=== PATIENT | female | born 1950 | race African-American/Black ===

== ENCOUNTER → 2016-12-07 | Outpatient (CLI) | payer MEDICARE, OTHER ==
[~2016-12-07] MED LIST: THYROXIN; VALS160T51 OR
== END | disposition home or self-care (01) ==
LOC: Rad HDHVI 14:56
PROVIDERS: ATTEND Internal Medicine Cardiovascular Disease
DX: I44.2 Atrioventricular block, complete (principal); R06.02 Shortness of breath
CPT/HCPCS: 93306

== ENCOUNTER → 2016-12-13 | Outpatient (CLI) | payer MEDICARE, OTHER ==
[~2016-12-13] VITALS: Ht 174.6 cm; Wt 117.9 kg
== END | disposition home or self-care (01) ==
LOC: Rad HDHVI 13:33
PROVIDERS: ATTEND Internal Medicine Cardiovascular Disease
DX: I44.7 Left bundle-branch block, unspecified (principal); R06.02 Shortness of breath; R05 Cough
CPT/HCPCS: 78452; 93017; 96374; A9500

== ENCOUNTER → 2016-12-15 | Outpatient (CLI) | payer MEDICARE, OTHER ==
[~2016-12-15] MED LIST changes: +IOHEXOL 350 MG/ML 100ML IJ ONE
[2016-12-15 10:15] VITALS: BP 136/79
[2016-12-15 11:15] VITALS: BP 132/72
== END | disposition home or self-care (01) ==
LOC: Rad HDHVI 10:08
PROVIDERS: ATTEND Internal Medicine Cardiovascular Disease
DX: G45.9 Transient cerebral ischemic attack, unspecified (principal); R05 Cough; R51 Headache
CPT/HCPCS: 70496; 70498; 71020; 82565; 96374; G0463; Q9967

== ENCOUNTER → 2016-12-28 | Outpatient (CLI) | payer MEDICARE, OTHER ==
[~2016-12-28] MED LIST changes: -IOHEXOL 350 MG/ML 100ML IJ ONE
[2016-12-28 16:31] LABS: Basophils # (auto) 0 uL; Basophils % (auto) 0.3 % (0.0-2.0); Eosinophils # (auto) 0.1 uL; Eosinophils % (auto) 1.8 % (0.0-7.0); Hematocrit 36.3 % (36.0-46.0); Hemoglobin 11.8 g/dL (12.2-16.2); Lymphocytes # (auto) 2.3 uL; Mean Corpuscular Hemoglobin 29.6 pg (28.0-32.0); Mean Corpuscular Hgb Conc. 32.6 g/dL (32.0-36.0); Mean Corpuscular Volume 90.9 fL (80.0-100.0); Mean Platelet Volume 7.7 fL (6.9-10.8); Monocytes # (auto) 0.2 uL; Monocytes % (auto) 3.7 % (0.0-12.0); Neutrophils # (auto) 3.6 uL; Neutrophils % (auto) 58.2 % (37.0-80.0); Platelet Count (auto) 282 10^3/uL (140-450); Red Cell Distribution Width 14.7 % (11.8-14.3); White Blood Cell 6.3 10^3/uL (4.4-10.8)
[2016-12-28 16:36] LABS: Albumin 3.5 g/dL (3.4-5.0); Calcium 8.7 mg/dL (8.5-10.1); Magnesium 2.1 mg/dL (1.6-2.6); Potassium 3.9 mmol/L (3.5-5.1)
[2016-12-28 16:43] LABS: Bilirubin, Total 0.4 mg/dL (0.2-1.0); Total Protein 7.7 g/dL (6.4-8.2)
== END | disposition home or self-care (01) ==
LOC: CHF HDHVI 12:32
PROVIDERS: ATTEND Internal Medicine Cardiovascular Disease
DX: I10 Essential (primary) hypertension (principal); E11.9 Type 2 diabetes mellitus without complications; E83.42 Hypomagnesemia; D64.9 Anemia, unspecified; E03.9 Hypothyroidism, unspecified
CPT/HCPCS: 36415; 80053; 83036; 83735; 84443; 85025; G0463

== ENCOUNTER → 2017-02-15 | Outpatient (CLI) | payer MEDICARE, OTHER ==
[~2017-02-15] MED LIST changes: +READI-CAT 2 (BARIUM SULF)(VANILLA SMOOTHIE) 450ML ONE
[2017-02-15 16:19] LABS: Urine Bilirubin Negative (Negative); Urine Blood Negative /uL (Negative); Urine Color Yellow (Yellow); Urine Glucose Normal (Normal); Urine Ketone Negative (Negative); Urine Nitrite Negative (Negative); Urine Urobilinogen Normal (Negative); Urine pH 5.5 (5.0-8.0)
== END | disposition home or self-care (01) ==
LOC: Rad HDHVI 10:54
PROVIDERS: ATTEND Internal Medicine Cardiovascular Disease
DX: K42.9 Umbilical hernia without obstruction or gangrene (principal); M48.02 Spinal stenosis, cervical region; M51.26 Other intervertebral disc displacement, lumbar region; M48.061 Spinal stenosis, lumbar region without neurogenic claudication; N39.0 Urinary tract infection, site not specified
CPT/HCPCS: 72125; 72131; 74176; 81003; 87086

== ENCOUNTER → 2018-01-06 | Outpatient (CLI) | payer MEDICARE, BC ==
[~2018-01-06] MED LIST changes: -READI-CAT 2 (BARIUM SULF)(VANILLA SMOOTHIE) 450ML ONE
[2018-01-06 12:20] LABS: Basophils # (auto) 0 uL; Basophils % (auto) 0.6 % (0.0-2.0); Eosinophils # (auto) 0.2 uL; Eosinophils % (auto) 2.8 % (0.0-7.0); Hemoglobin 11.5 g/dL (12.2-16.2); Lymphocytes # (auto) 2.4 uL; Lymphocytes % (auto) 40.5 % (10.0-50.0); Mean Corpuscular Hemoglobin 30.4 pg (28.0-32.0); Mean Corpuscular Hgb Conc. 32.9 g/dL (32.0-36.0); Mean Corpuscular Volume 92.3 fL (80.0-100.0); Monocytes # (auto) 0.3 uL; Monocytes % (auto) 4.8 % (0.0-12.0); Neutrophils # (auto) 3.1 uL; Neutrophils % (auto) 51.3 % (37.0-80.0); Nucleated Red Blood Cells % 0.3 %; Platelet Count (auto) 268 10^3/uL (140-450); Red Cell Distribution Width 14.6 % (11.8-14.3)
[2018-01-06 12:36] LABS: Free T4 (Free Thyroxine) 1.07 ng/dL (0.89-1.76)
[2018-01-06 12:43] LABS: Albumin 3.4 g/dL (3.4-5.0); Calcium 8.7 mg/dL (8.5-10.1); Potassium 3.8 mmol/L (3.5-5.1)
[2018-01-06 12:49] LABS: BUN/Creatinine Ratio 23.4; Bilirubin, Total 0.3 mg/dL (0.2-1.0); Total Protein 7.7 g/dL (6.4-8.2)
== END | disposition home or self-care (01) ==
LOC: Rad HDHVI 08:34
PROVIDERS: ATTEND Internal Medicine Cardiovascular Disease
DX: Z00.01 Encounter for general adult medical examination with abnormal findings (principal); I67.2 Cerebral atherosclerosis; E03.9 Hypothyroidism, unspecified; E55.9 Vitamin D deficiency, unspecified; E11.9 Type 2 diabetes mellitus without complications; D51.9 Vitamin B12 deficiency anemia, unspecified; R51 Headache
CPT/HCPCS: 36415; 70450; 80053; 80061; 82306; 82607; 83036; 84439; 84443; 85025

== ENCOUNTER → 2018-11-02 | Outpatient (CLI) | payer MEDICARE, BC | END | disposition home or self-care (01) | LOC: Rad HDHVI 09:01 | PROVIDERS: ATTEND Internal Medicine Cardiovascular Disease | DX: I34.0 Nonrheumatic mitral (valve) insufficiency (principal); I11.0 Hypertensive heart disease with heart failure; I50.33 Acute on chronic diastolic (congestive) heart failure | CPT/HCPCS: 93306 ==

== ENCOUNTER → 2018-11-15 | Outpatient (CLI) | payer MEDICARE, BC | END | disposition home or self-care (01) | LOC: Rad HDHVI 09:37 | PROVIDERS: ATTEND Internal Medicine Cardiovascular Disease | DX: R07.89 Other chest pain (principal); I11.0 Hypertensive heart disease with heart failure; I50.33 Acute on chronic diastolic (congestive) heart failure; R94.31 Abnormal electrocardiogram [ECG] [EKG]; R06.01 Orthopnea | CPT/HCPCS: 78452; 93017; 96374; A9500 ==

== ENCOUNTER → 2019-07-19 | Outpatient (CLI) | payer MEDICARE, BC ==
[2019-07-19 11:59] LABS: Urine Blood Negative /uL (Negative)
[2019-07-19 12:00] LABS: Basophils # (auto) 0 10 ^3/uL (0-0.2); Basophils % (auto) 0.3 % (0.0-2.0); Eosinophils # (auto) 0.2 10 ^3/uL (0-0.8); Eosinophils % (auto) 4.4 % (0.0-7.0); Hematocrit 36.1 % (36.0-46.0); Hemoglobin 11.7 g/dL (12.2-16.2); Lymphocytes # (auto) 2.6 10 ^3/uL (0.4-5.4); Lymphocytes % (auto) 45.5 % (10.0-50.0); Mean Corpuscular Hemoglobin 29.5 pg (28.0-32.0); Mean Corpuscular Hgb Conc. 32.3 g/dL (32.0-36.0); Mean Corpuscular Volume 91.3 fL (80.0-100.0); Monocytes # (auto) 0.2 10 ^3/uL (0-1.3); Monocytes % (auto) 3.4 % (0.0-12.0); Neutrophils # (auto) 2.6 10 ^3/uL (1.6-8.6); Neutrophils % (auto) 46.4 % (37.0-80.0); Platelet Count (auto) 272 10^3/uL (140-450); Red Blood Cells 3.95 10^6/uL (4.0-5.20); Red Cell Distribution Width 14.7 % (11.8-14.3); White Blood Cell 5.6 10^3/uL (4.4-10.8)
[2019-07-19 12:13] LABS: Potassium 3.5 mmol/L (3.5-5.1)
[2019-07-19 12:21] LABS: Albumin 3.3 g/dL (3.4-5.0); BUN/Creatinine Ratio 18.6; Bilirubin, Total 0.4 mg/dL (0.2-1.0); Calcium 8.7 mg/dL (8.5-10.1); Total Protein 7.8 g/dL (6.4-8.2)
[2019-07-19 12:24] LABS: Free T4 (Free Thyroxine) 1.34 ng/dL (0.89-1.76)
== END | disposition home or self-care (01) ==
LOC: LAB 10:35
PROVIDERS: ATTEND Internal Medicine Cardiovascular Disease
DX: E03.9 Hypothyroidism, unspecified (principal); K90.9 Intestinal malabsorption, unspecified; N39.0 Urinary tract infection, site not specified; D51.9 Vitamin B12 deficiency anemia, unspecified; Z79.899 Other long term (current) drug therapy
CPT/HCPCS: 36415; 80053; 80061; 81003; 82306; 82607; 83036; 84439; 84443; 85025

== ENCOUNTER → 2019-10-22 | Outpatient (CLI) | payer MEDICARE, BC | END | disposition home or self-care (01) | LOC: Rad HDHVI 12:34 | PROVIDERS: ATTEND Internal Medicine Cardiovascular Disease | DX: M51.26 Other intervertebral disc displacement, lumbar region (principal); M48.061 Spinal stenosis, lumbar region without neurogenic claudication; M25.552 Pain in left hip; M25.551 Pain in right hip; K42.9 Umbilical hernia without obstruction or gangrene | CPT/HCPCS: 72131; 72192 ==

== ENCOUNTER → 2019-11-21 | Outpatient (CLI) | payer MEDICARE, BC | END | disposition home or self-care (01) | LOC: LAB 13:26 | PROVIDERS: ATTEND Internal Medicine Cardiovascular Disease | DX: E03.9 Hypothyroidism, unspecified (principal); I10 Essential (primary) hypertension | CPT/HCPCS: 36415; 84439; 84443 ==

== ENCOUNTER 2020-02-03 09:27 | Emergency (ER) | payer MEDICARE, BC ==
[~2020-02-03] VITALS: Ht 172.7 cm; Wt 112.5 kg
[2020-02-03] MEDS ORDERED: HYDROmorphone HCL 2 MG/ML VL ONE (10:38)
[2020-02-03] MEDS ORDERED: PROMETHAZINE HCL 25 MG/ML 1ML IV ONE (10:45)
[2020-02-03] MEDS ORDERED: HYDROmorphone HCL 2 MG/ML VL IV ONE (10:45)
[2020-02-03 11:07] LABS: Basophils # (auto) 0 10 ^3/uL (0-0.2); Basophils % (auto) 0.4 % (0.0-2.0); Eosinophils # (auto) 0.1 10 ^3/uL (0-0.8); Eosinophils % (auto) 0.7 % (0.0-7.0); Hematocrit 34.8 % (36.0-46.0); Hemoglobin 11.4 g/dL (12.2-16.2); Lymphocytes # (auto) 2.8 10 ^3/uL (0.4-5.4); Lymphocytes % (auto) 33.8 % (10.0-50.0); Mean Corpuscular Hemoglobin 30.4 pg (28.0-32.0); Mean Corpuscular Hgb Conc. 32.7 g/dL (32.0-36.0); Mean Corpuscular Volume 92.9 fL (80.0-100.0); Monocytes # (auto) 0.3 10 ^3/uL (0-1.3); Monocytes % (auto) 3.1 % (0.0-12.0); Neutrophils # (auto) 5.2 10 ^3/uL (1.6-8.6); Platelet Count (auto) 280 10^3/uL (140-450); Red Blood Cells 3.75 10^6/uL (4.0-5.20); Red Cell Distribution Width 14.5 % (11.8-14.3); White Blood Cell 8.4 10^3/uL (4.4-10.8)
[2020-02-03 11:17] LABS: Alanine Aminotransferase 19 U/L (13-56); Albumin 3.5 g/dL (3.4-5.0); Alkaline Phosphatase 74 U/L (45-117); Anion Gap 8 (5-15); Aspartate Aminotransferase 13 U/L (15-37); Bilirubin, Total 0.4 mg/dL (0.2-1.0); Blood Urea Nitrogen 17 mg/dL (7-18); Calcium 8.9 mg/dL (8.5-10.1); Carbon Dioxide 25 mmol/L (21-32); Chloride 107 mmol/L (98-107); GFR African American 90 mL/min; GFR Non-African American 74 mL/min; Glucose 124 mg/dL (74-106); Potassium 3.4 mmol/L (3.5-5.1); Sodium 140 mmol/L (136-145); Total Protein 7.5 g/dL (6.4-8.2)
[2020-02-03] MEDS ORDERED: POTASSIUM EFFERVESENT TAB 25 MEQ PO ONE (13:15)
[2020-02-03 13:55] VITALS: BP 90/66
== END 2020-02-03 15:13 | disposition home or self-care (01) ==
LOC: EDBD 09:27 → ER 09:27
DX: S43.004A Unspecified dislocation of right shoulder joint, initial encounter (principal); S42.141A Displaced fracture of glenoid cavity of scapula, right shoulder, initial encounter for closed fracture; S42.91XA Fracture of right shoulder girdle, part unspecified, initial encounter for closed fracture; E87.6 Hypokalemia; W01.0XXA Fall on same level from slipping, tripping and stumbling without subsequent striking against object, initial encounter; Y93.89 Activity, other specified; Y92.89 Other specified places as the place of occurrence of the external cause; Y99.8 Other external cause status
CPT/HCPCS: 23650; 36415; 71045; 71101; 72040; 73020; 73030; 73502; 80053; 84484; 85025; 93005; 96374; 96375; 99285; J1170; J2550

== ENCOUNTER → 2020-02-18 | Outpatient (CLI) | payer MEDICARE, BC ==
[~2020-02-18] VITALS: Ht 1 cm; Wt 0.5 kg
[~2020-02-18] MED LIST changes: +ACETAMINOPHEN 500 MG TAB PO ONE; +DexAMETHasone SOD PHOS 10MG/1ML VIAL INJ IV ONE; +DexAMETHasone SOD PHOS 10MG/1ML VIAL INJ ONE; +KETOROLAC TROMETH 30 MG/ML 1ML VIAL IV ONE; +KETOROLAC TROMETH 60MG/2ML VIAL ONE
[2020-02-18 12:30] VITALS: BP 116/77
[2020-02-18 13:59] LABS: Basophils # (auto) 0 10 ^3/uL (0-0.2); Basophils % (auto) 0.1 % (0.0-2.0); Eosinophils # (auto) 0 10 ^3/uL (0-0.8); Hematocrit 32.9 % (36.0-46.0); Hemoglobin 10.8 g/dL (12.2-16.2); Lymphocytes % (auto) 14.3 % (10.0-50.0); Mean Corpuscular Hemoglobin 29.9 pg (28.0-32.0); Mean Corpuscular Hgb Conc. 32.9 g/dL (32.0-36.0); Mean Corpuscular Volume 90.7 fL (80.0-100.0); Monocytes # (auto) 0.2 10 ^3/uL (0-1.3); Monocytes % (auto) 3.2 % (0.0-12.0); Neutrophils # (auto) 5.7 10 ^3/uL (1.6-8.6); Neutrophils % (auto) 82.4 % (37.0-80.0); Nucleated Red Blood Cells % 0.1 %; Platelet Count (auto) 316 10^3/uL (140-450); Red Blood Cells 3.63 10^6/uL (4.0-5.20); Red Cell Distribution Width 14.1 % (11.8-14.3); White Blood Cell 6.9 10^3/uL (4.4-10.8)
[2020-02-18 14:10] LABS: Albumin 3.1 g/dL (3.4-5.0); Calcium 8.5 mg/dL (8.5-10.1); Magnesium 2.2 mg/dL (1.6-2.6); Potassium 3.5 mmol/L (3.5-5.1)
[2020-02-18 14:15] LABS: BUN/Creatinine Ratio 14.5; Bilirubin, Total 0.8 mg/dL (0.2-1.0); Total Protein 7.6 g/dL (6.4-8.2)
[2020-02-18 15:30] VITALS: BP 111/73
== END | disposition home or self-care (01) ==
LOC: CHF HDHVI 12:49
PROVIDERS: ATTEND Internal Medicine Cardiovascular Disease
DX: I11.0 Hypertensive heart disease with heart failure (principal); I50.23 Acute on chronic systolic (congestive) heart failure; M25.511 Pain in right shoulder; M54.6 Pain in thoracic spine; R05 Cough; M25.411 Effusion, right shoulder
CPT/HCPCS: 36415; 71046; 73030; 80053; 83735; 85025; 96372; 96374; 96375; G0463; J1100; J1885

== ENCOUNTER 2020-02-20 02:31 | Emergency (ER) | payer MEDICARE, BC ==
[~2020-02-20] VITALS: Ht 172.7 cm; Wt 108.9 kg
[~2020-02-20 02:31] MED LIST changes: -ACETAMINOPHEN 500 MG TAB PO ONE; -DexAMETHasone SOD PHOS 10MG/1ML VIAL INJ IV ONE; -DexAMETHasone SOD PHOS 10MG/1ML VIAL INJ ONE; -KETOROLAC TROMETH 30 MG/ML 1ML VIAL IV ONE; -KETOROLAC TROMETH 60MG/2ML VIAL ONE
[2020-02-20 02:59] VITALS: BP 151/67
[2020-02-20] MEDS ORDERED: HYDROcodone-ACET 10/325MG TAB PO ONE (04:15)
== END 2020-02-20 06:25 | disposition home or self-care (01) ==
LOC: EDUNIT# 02:31 → EDBD 02:31 → ER 02:38
DX: S43.401A Unspecified sprain of right shoulder joint, initial encounter (principal); I10 Essential (primary) hypertension; Z79.899 Other long term (current) drug therapy; W19.XXXA Unspecified fall, initial encounter; Y93.89 Activity, other specified; Y92.89 Other specified places as the place of occurrence of the external cause; Y99.8 Other external cause status

== ENCOUNTER → 2020-04-18 | Outpatient (CLI) | payer MEDICARE, BC ==
[~2020-04-18] MED LIST changes: +VALS160T4 OR; -VALS160T51 OR
== END | disposition home or self-care (01) ==
LOC: Rad HDHVI 11:05
PROVIDERS: ATTEND Internal Medicine Cardiovascular Disease
DX: M19.011 Primary osteoarthritis, right shoulder (principal); R91.8 Other nonspecific abnormal finding of lung field; I70.0 Atherosclerosis of aorta; R06.02 Shortness of breath; E03.9 Hypothyroidism, unspecified; M25.511 Pain in right shoulder
CPT/HCPCS: 36415; 71046; 73030; 84443

== ENCOUNTER 2020-06-11 01:27 | Emergency (ER) | payer MEDICARE, BC ==
[~2020-06-11] VITALS: Ht 180.3 cm; Wt 108.9 kg
[2020-06-11] MEDS ORDERED: SODIUM CHLORIDE 0.9% 1,000 ML IV ONE (02:30)
[2020-06-11 03:08] LABS: Basophils # (auto) 0.1 10 ^3/uL (0-0.2); Basophils % (auto) 1.3 % (0.0-2.0); Eosinophils # (auto) 0.1 10 ^3/uL (0-0.8); Hematocrit 37.3 % (36.0-46.0); Hemoglobin 11.9 g/dL (12.2-16.2); Lymphocytes # (auto) 2.6 10 ^3/uL (0.4-5.4); Mean Corpuscular Hemoglobin 31.2 pg (28.0-32.0); Mean Corpuscular Hgb Conc. 31.9 g/dL (32.0-36.0); Mean Corpuscular Volume 97.9 fL (80.0-100.0); Monocytes # (auto) 0.4 10 ^3/uL (0-1.3); Monocytes % (auto) 3.3 % (0.0-12.0); Neutrophils # (auto) 7.7 10 ^3/uL (1.6-8.6); Neutrophils % (auto) 70.4 % (37.0-80.0); Nucleated Red Blood Cells % 0.1 %; Platelet Count (auto) 249 10^3/uL (140-450); Red Blood Cells 3.81 10^6/uL (4.0-5.20); Red Cell Distribution Width 15.8 % (11.8-14.3)
[2020-06-11 03:21] LABS: INR 1.02 (0.9-1.15)
[2020-06-11 03:30] LABS: Albumin 3.8 g/dL (3.4-5.0); Anion Gap 8 (5-15); Blood Urea Nitrogen 15 mg/dL (7-18); Carbon Dioxide 23 mmol/L (21-32); Chloride 108 mmol/L (98-107); Glucose 128 mg/dL (74-106); Lipase 109 U/L (73-393); Potassium 3.9 mmol/L (3.5-5.1); Sodium 139 mmol/L (136-145)
[2020-06-11 03:36] LABS: Alanine Aminotransferase 20 U/L (13-56); Alkaline Phosphatase 75 U/L (45-117); Aspartate Aminotransferase 17 U/L (15-37); BUN/Creatinine Ratio 17.4; Bilirubin, Total 0.4 mg/dL (0.2-1.0); GFR African American 84 mL/min; GFR Non-African American 69 mL/min; Phosphorus 3.6 mg/dL (2.5-4.90); Total Protein 7.6 g/dL (6.4-8.2)
[2020-06-11] MEDS ORDERED: DICYCLOMINE HCL (10MG/ML) 2 ML AMPULE IM ONE (04:30)
[2020-06-11 05:01] VITALS: BP 119/65
== END 2020-06-11 05:23 | disposition home or self-care (01) ==
LOC: EDBD 01:27 → ER 01:32
DX: R55 Syncope and collapse (principal); R19.7 Diarrhea, unspecified; I10 Essential (primary) hypertension; Z88.2 Allergy status to sulfonamides
CPT/HCPCS: 36415; 71045; 80053; 82962; 83605; 83690; 83735; 83880; 84100; 84484; 85025; 85610; 93005; 96360; 96361; 96372; 99285; J0500

== ENCOUNTER → 2020-10-01 | Outpatient (CLI) | payer MEDICARE, BC | END | disposition home or self-care (01) | LOC: Rad HDHVI 09:46 | PROVIDERS: ATTEND Internal Medicine Cardiovascular Disease | DX: I10 Essential (primary) hypertension (principal); E78.5 Hyperlipidemia, unspecified | CPT/HCPCS: 93925 ==

== ENCOUNTER → 2020-10-03 | Outpatient (CLI) | payer MEDICARE, BC | END | disposition home or self-care (01) | LOC: Rad HDHVI 15:39 | PROVIDERS: ATTEND Internal Medicine Cardiovascular Disease | DX: R00.2 Palpitations (principal); R06.02 Shortness of breath | CPT/HCPCS: 93306 ==

== ENCOUNTER → 2020-10-15 | Outpatient (CLI) | payer MEDICARE, BC | END | disposition home or self-care (01) | LOC: Rad HDHVI 12:54 | PROVIDERS: ATTEND Internal Medicine Cardiovascular Disease | DX: R51.9 Headache, unspecified (principal) | CPT/HCPCS: 70450 ==

== ENCOUNTER → 2020-12-15 | Outpatient (CLI) | payer MEDICARE, BC ==
[2020-12-15 15:36] LABS: Basophils # (auto) 0 10 ^3/uL (0-0.2); Basophils % (auto) 0.4 % (0.0-2.0); Eosinophils # (auto) 0 10 ^3/uL (0-0.8); Eosinophils % (auto) 1.2 % (0.0-7.0); Hematocrit 37.1 % (36.0-46.0); Hemoglobin 12.1 g/dL (12.2-16.2); Lymphocytes # (auto) 1.7 10 ^3/uL (0.4-5.4); Lymphocytes % (auto) 40.6 % (10.0-50.0); Mean Corpuscular Hemoglobin 28.7 pg (28.0-32.0); Mean Corpuscular Hgb Conc. 32.5 g/dL (32.0-36.0); Mean Corpuscular Volume 88.2 fL (80.0-100.0); Monocytes # (auto) 0.5 10 ^3/uL (0-1.3); Monocytes % (auto) 13.2 % (0.0-12.0); Neutrophils # (auto) 1.8 10 ^3/uL (1.6-8.6); Neutrophils % (auto) 44.6 % (37.0-80.0); Red Blood Cells 4.21 10^6/uL (4.0-5.20); Red Cell Distribution Width 14.8 % (11.8-14.3); White Blood Cell 4.1 10^3/uL (4.4-10.8)
[2020-12-15 16:21] LABS: Albumin 3.3 g/dL (3.4-5.0); Calcium 9.3 mg/dL (8.5-10.1); Potassium 3.8 mmol/L (3.5-5.1)
[2020-12-15 16:25] LABS: BUN/Creatinine Ratio 24.6; Bilirubin, Total 0.4 mg/dL (0.2-1.0); Total Protein 7.6 g/dL (6.4-8.2)
== END | disposition home or self-care (01) ==
LOC: LAB 10:12
PROVIDERS: ATTEND Internal Medicine Cardiovascular Disease
DX: E03.9 Hypothyroidism, unspecified (principal); R94.4 Abnormal results of kidney function studies; D64.9 Anemia, unspecified
CPT/HCPCS: 36415; 80053; 84443; 85025

== ENCOUNTER → 2020-12-17 | Outpatient (CLI) | payer MEDICARE, BC ==
[~2020-12-17] MED LIST changes: +IOHEXOL 350 MG/ML 100ML IJ ONE; +READI-CAT 2 (BARIUM SULF)(VANILLA SMOOTHIE) 450ML ONE
[2020-12-17 08:45] VITALS: BP 135/74
[2020-12-17 09:37] VITALS: BP 144/72
== END | disposition home or self-care (01) ==
LOC: Rad HDHVI 08:36
PROVIDERS: ATTEND Internal Medicine Cardiovascular Disease
DX: K57.30 Diverticulosis of large intestine without perforation or abscess without bleeding (principal); N85.2 Hypertrophy of uterus; D25.9 Leiomyoma of uterus, unspecified; I70.0 Atherosclerosis of aorta; I25.10 Atherosclerotic heart disease of native coronary artery without angina pectoris; R07.9 Chest pain, unspecified; R10.9 Unspecified abdominal pain; R63.4 Abnormal weight loss
CPT/HCPCS: 71260; 74177; G0463; Q9967

== ENCOUNTER → 2021-04-28 | Outpatient (CLI) | payer MEDICARE, BC ==
[~2021-04-28] MED LIST changes: -IOHEXOL 350 MG/ML 100ML IJ ONE; -READI-CAT 2 (BARIUM SULF)(VANILLA SMOOTHIE) 450ML ONE
== END | disposition home or self-care (01) ==
LOC: LAB 12:11
PROVIDERS: ATTEND Internal Medicine Cardiovascular Disease
DX: R94.4 Abnormal results of kidney function studies (principal)
CPT/HCPCS: 36415; 82565; 84520

== ENCOUNTER → 2021-04-29 | Outpatient (CLI) | payer MEDICARE, BC ==
[~2021-04-29] MED LIST changes: +IOHEXOL 350 MG/ML 100ML IJ ONE
[2021-04-29 09:08] VITALS: BP 116/64
[2021-04-29 09:37] VITALS: BP 133/64
== END | disposition home or self-care (01) ==
LOC: Rad HDHVI 09:02
PROVIDERS: ATTEND Internal Medicine Cardiovascular Disease
DX: J43.9 Emphysema, unspecified (principal); R91.1 Solitary pulmonary nodule; J94.8 Other specified pleural conditions; I70.90 Unspecified atherosclerosis; K21.9 Gastro-esophageal reflux disease without esophagitis; M47.814 Spondylosis without myelopathy or radiculopathy, thoracic region; M19.011 Primary osteoarthritis, right shoulder; M19.012 Primary osteoarthritis, left shoulder
CPT/HCPCS: 71260; G0463; Q9967

== ENCOUNTER 2021-06-04 23:38 | Emergency (ER) | payer MEDICARE, BC ==
[~2021-06-04] VITALS: Ht 182.9 cm; Wt 72.6 kg
[~2021-06-04 23:38] MED LIST changes: -IOHEXOL 350 MG/ML 100ML IJ ONE
[2021-06-05 00:22] VITALS: BP 134/69
[2021-06-05 00:34] LABS: Urine Bacteria NONE SEEN /hpf (None Seen); Urine Blood Negative /uL (Negative); Urine Specific Gravity 1.009 (1.001-1.035); Urine WBC <1 /hpf (0 - 5)
[2021-06-05 00:51] LABS: Alcohol, Urine < 3.0 mg/dL (0-10); Amphetamine Screen, Urine NEGATIVE (NEGATIVE); Barbiturate Scree,Urine NEGATIVE (NEGATIVE); Benzodiazephine Screen, Urine NEGATIVE (NEGATIVE); Cannabinoid Screen, Urine NEGATIVE (NEGATIVE); Cocaine Screen, Urine NEGATIVE (NEGATIVE); Opiate Scree,Urine NEGATIVE (NEGATIVE); Phencyclidine Screen, Urine NEGATIVE (NEGATIVE)
== END 2021-06-05 01:45 | disposition home or self-care (01) ==
LOC: ER 23:38 → EDBD 23:38 → ER 06-05 01:45
DX: R10.13 Epigastric pain (principal); I10 Essential (primary) hypertension; E03.9 Hypothyroidism, unspecified; Z79.899 Other long term (current) drug therapy; Z88.2 Allergy status to sulfonamides
CPT/HCPCS: 80307; 81001; 93005

== ENCOUNTER → 2021-06-16 | Outpatient (CLI) | payer MEDICARE, BC | END | disposition home or self-care (01) | LOC: LAB 06:40 | PROVIDERS: ATTEND Physician Assistant | DX: Z20.822 Contact with and (suspected) exposure to COVID-19 (principal) | CPT/HCPCS: C9803; U0003 ==

== ENCOUNTER → 2021-11-04 | Outpatient (CLI) | payer MEDICARE, BC ==
[2021-11-04 17:20] LABS: Basophils # (auto) 0 10 ^3/uL (0-0.2); Basophils % (auto) 0.5 % (0.0-2.0); Eosinophils # (auto) 0.1 10 ^3/uL (0-0.8); Hematocrit 37.4 % (36.0-46.0); Lymphocytes # (auto) 2.3 10 ^3/uL (0.4-5.4); Lymphocytes % (auto) 46.1 % (10.0-50.0); Mean Corpuscular Hemoglobin 29.2 pg (28.0-32.0); Mean Corpuscular Hgb Conc. 32.1 g/dL (32.0-36.0); Mean Corpuscular Volume 91.1 fL (80.0-100.0); Monocytes # (auto) 0.2 10 ^3/uL (0-1.3); Monocytes % (auto) 3.9 % (0.0-12.0); Neutrophils # (auto) 2.3 10 ^3/uL (1.6-8.6); Neutrophils % (auto) 47.5 % (37.0-80.0); Red Cell Distribution Width 14.2 % (11.8-14.3); White Blood Cell 4.9 10^3/uL (4.4-10.8)
[2021-11-04 17:30] LABS: Albumin 3.7 g/dL (3.4-5.0); Calcium 9.4 mg/dL (8.5-10.1); Potassium 3.4 mmol/L (3.5-5.1)
[2021-11-04 17:34] LABS: Urine Blood Negative /uL (Negative); Urine Specific Gravity 1.027 (1.001-1.035)
[2021-11-04 17:37] LABS: BUN/Creatinine Ratio 28.1; Bilirubin, Direct 0.1 mg/dL (0-0.2); Bilirubin, Total 0.6 mg/dL (0.2-1.0); Total Protein 7.7 g/dL (6.4-8.2)
== END | disposition home or self-care (01) ==
LOC: LAB 13:41
PROVIDERS: ATTEND Internal Medicine Cardiovascular Disease
DX: D64.9 Anemia, unspecified (principal); E11.9 Type 2 diabetes mellitus without complications; I10 Essential (primary) hypertension; D51.3 Other dietary vitamin B12 deficiency anemia; E55.9 Vitamin D deficiency, unspecified; R00.2 Palpitations; R53.1 Weakness; R30.0 Dysuria
CPT/HCPCS: 36415; 80048; 80061; 80076; 81003; 82306; 83036; 84443; 85025

== ENCOUNTER → 2022-02-24 | Outpatient (CLI) | payer MEDICARE, BC | END | disposition home or self-care (01) | LOC: Rad HDHVI 13:08 | PROVIDERS: ATTEND Internal Medicine Cardiovascular Disease | DX: R05.9 Cough, unspecified (principal); I70.0 Atherosclerosis of aorta; M47.814 Spondylosis without myelopathy or radiculopathy, thoracic region | CPT/HCPCS: 71046 ==

== ENCOUNTER → 2022-03-23 | Outpatient (CLI) | payer MEDICARE, BC ==
[2022-03-23 11:47] LABS: Basophils # (auto) 0 10 ^3/uL (0-0.2); Basophils % (auto) 0.4 % (0.0-2.0); Eosinophils # (auto) 0.1 10 ^3/uL (0-0.8); Eosinophils % (auto) 2.7 % (0.0-7.0); Hematocrit 34.4 % (36.0-46.0); Hemoglobin 11.5 g/dL (12.2-16.2); Lymphocytes # (auto) 2.1 10 ^3/uL (0.4-5.4); Lymphocytes % (auto) 44.5 % (10.0-50.0); Mean Corpuscular Hgb Conc. 33.6 g/dL (32.0-36.0); Mean Corpuscular Volume 95.3 fL (80.0-100.0); Monocytes # (auto) 0.2 10 ^3/uL (0-1.3); Monocytes % (auto) 5.2 % (0.0-12.0); Neutrophils # (auto) 2.2 10 ^3/uL (1.6-8.6); Neutrophils % (auto) 47.2 % (37.0-80.0); Red Blood Cells 3.61 10^6/uL (4.0-5.20); Red Cell Distribution Width 16.2 % (11.8-14.3); White Blood Cell 4.7 10^3/uL (4.4-10.8)
[2022-03-23 12:01] LABS: Albumin 3.9 g/dL (3.4-5.0); Calcium 8.9 mg/dL (8.5-10.1); Potassium 3.9 mmol/L (3.5-5.1)
[2022-03-23 12:07] LABS: BUN/Creatinine Ratio 17.3; Bilirubin, Total 0.6 mg/dL (0.2-1.0); Total Protein 7.3 g/dL (6.4-8.2)
[2022-03-23 12:16] LABS: Free T4 (Free Thyroxine) 0.12 ng/dL (0.89-1.76)
== END | disposition home or self-care (01) ==
LOC: LAB 09:05
PROVIDERS: ATTEND Internal Medicine Cardiovascular Disease
DX: I10 Essential (primary) hypertension (principal); E55.9 Vitamin D deficiency, unspecified
CPT/HCPCS: 36415; 80053; 80061; 82306; 82607; 83036; 84439; 84443; 85025

== ENCOUNTER → 2022-03-24 | Outpatient (CLI) | payer MEDICARE, BC ==
[2022-03-24 16:06] LABS: Urine Blood Negative /uL (Negative); Urine Specific Gravity 1.022 (1.001-1.035)
== END | disposition home or self-care (01) ==
LOC: LAB 13:06
PROVIDERS: ATTEND Internal Medicine Cardiovascular Disease
DX: N39.0 Urinary tract infection, site not specified (principal)
CPT/HCPCS: 81003

== ENCOUNTER → 2022-04-28 | Outpatient (CLI) | payer MEDICARE, BC | END | disposition home or self-care (01) | LOC: LAB 13:18 | PROVIDERS: ATTEND Internal Medicine Cardiovascular Disease | DX: E03.9 Hypothyroidism, unspecified (principal) | CPT/HCPCS: 36415; 84443 ==

== ENCOUNTER 2022-05-27 08:05 | Inpatient (IN) | payer MEDICARE, BC ==
[2022-05-24 13:09] LABS: Basophils # (auto) 0 10 ^3/uL (0-0.2); Basophils % (auto) 0.6 % (0.0-2.0); Eosinophils # (auto) 0.1 10 ^3/uL (0-0.8); Eosinophils % (auto) 2.2 % (0.0-7.0); Hematocrit 33.7 % (36.0-46.0); Hemoglobin 11.1 g/dL (12.2-16.2); Lymphocytes # (auto) 1.9 10 ^3/uL (0.4-5.4); Lymphocytes % (auto) 38.1 % (10.0-50.0); Mean Corpuscular Hemoglobin 29.4 pg (28.0-32.0); Mean Corpuscular Hgb Conc. 32.8 g/dL (32.0-36.0); Mean Corpuscular Volume 89.6 fL (80.0-100.0); Monocytes # (auto) 0.3 10 ^3/uL (0-1.3); Monocytes % (auto) 5.8 % (0.0-12.0); Neutrophils # (auto) 2.7 10 ^3/uL (1.6-8.6); Neutrophils % (auto) 53.3 % (37.0-80.0); Nucleated Red Blood Cells % 0.4 %; Red Blood Cells 3.76 10^6/uL (4.0-5.20); Red Cell Distribution Width 14.9 % (11.8-14.3)
[2022-05-24 13:19] LABS: Partial Thromboplastin Time 26.8 sec (24.6-33.4)
[2022-05-24 13:40] LABS: Potassium 4.2 mmol/L (3.5-5.1)
[2022-05-24 13:42] LABS: BUN/Creatinine Ratio 19.1
[~2022-05-27] VITALS: Ht 172.7 cm; Wt 100.7 kg
[~2022-05-27 08:05] MED LIST changes: +CHOLPOW45 XX; +FURO1TAB31 PO; +LEVO150T10 PO; +LIOT50TA4 PO; +LORA-655 PO; +METO-281 PO; +METO25TA93 PO; +PANT40T PO; +POM; +POTA-180 PO; +SUCR1SUS16 PO; -THYROXIN; -VALS160T4 OR; +VITACAP46 OR; +ZOLP10TA6 PO
[2022-05-27] MEDS ORDERED: MIDAZOLAM HCL 2MG/2ML 2ml VIAL (1mg/ml) ONE ×2 (14:29→15:07)
[2022-05-27] MEDS ORDERED: fentaNYL CITRATE 100 MCG/2 ML VL ONE ×2 (14:29→15:07)
[2022-05-27] MEDS ORDERED: IODIXANOL 320MG/ML 100ML BTL IV ONE (14:30)
[2022-05-27] MEDS ORDERED: ANGIOMAX 250 MG VIAL IV ONE (14:30)
[2022-05-27] MEDS ORDERED: LIDOCAINE 2%HCL (LOCAL ANESTH.) INJ 10ml MDV ONE (14:30)
[2022-05-27] MEDS ORDERED: SODIUM CHL 0.9% 50 ML ONE (14:30)
[2022-05-27] MEDS ORDERED: ATROPINE SULF 1 MG/10ml SYR ONE (14:54)
[2022-05-27] MEDS ORDERED: IOHEXOL 300 MG/ML 100ML BOTTLE IJ ONE (15:13)
[2022-05-27] MEDS ORDERED: HYDROmorphone HCL 2 MG/ML VL/or syr ONE (15:31)
[2022-05-27] MEDS ORDERED: ASPirin 325 MG TAB ONE (15:37)
[2022-05-27] MEDS ORDERED: TICAGRELOR 90 MG TAB ONE (15:37)
[2022-05-27 15:45] VITALS: BP 115/63
[2022-05-27] MEDS ORDERED: LORazepam 0.5 MG TAB PO PRN (15:45)
[2022-05-27 16:00] VITALS: BP 107/59
[2022-05-27] MEDS ORDERED: MORPHINE SULFATE INJ 2 MG/ml SYRG IV PRN (16:00)
[2022-05-27] MEDS ORDERED: NITROGLYCERIN 0.4 MG SL TAB SL PRN (16:00)
[2022-05-27] MEDS ORDERED: ACETAMINOPHEN 500 MG TAB PO PRN (16:00)
[2022-05-27 16:15] VITALS: BP 110/58
[2022-05-27 16:30] VITALS: BP 110/62
[2022-05-27 16:45] VITALS: BP 113/59
[2022-05-27 20:00] VITALS: BP 113/60
[2022-05-27] MEDS: PANTOPRAZOLE 40 MG TAB PO SCH (21:53)
[2022-05-27] MEDS: METOCLOPRAMIDE HCL 10 MG TAB PO SCH (21:54)
[2022-05-27] MEDS: SODIUM CHLOR 0.9% PF (SALINE LOCK) 10ML VIAL/SYR IV SCH (21:54)
[2022-05-27] MEDS: TICAGRELOR 90 MG TAB PO SCH (21:54)
[2022-05-27] MEDS: SUCRALFATE 1 GM/10 ML ORAL SUSP PO SCH ×2 (22:07→22:08)
[2022-05-27] MEDS: METOPROLOL SUCCINATE XL 50 MG TAB PO SCH (22:07)
[2022-05-27] MEDS: ZOLPIDEM TARTRATE 5 MG TAB PO PRN (22:30)
[2022-05-28] MEDS: ZOLPIDEM TARTRATE 5 MG TAB PO PRN (00:16)
[2022-05-28 05:00] VITALS: BP 126/62
[2022-05-28] MEDS: SUCRALFATE 1 GM/10 ML ORAL SUSP PO SCH ×3 (06:33→16:34)
[2022-05-28] MEDS: SODIUM CHLOR 0.9% PF (SALINE LOCK) 10ML VIAL/SYR IV SCH ×2 (06:33→13:38)
[2022-05-28] MEDS ORDERED: LEVOTHYROXINE SODIUM 50 MCG TAB PO SCH (07:00)
[2022-05-28 08:38] VITALS: BP 128/68
[2022-05-28] MEDS: TICAGRELOR 90 MG TAB PO SCH (09:41)
[2022-05-28] MEDS: PANTOPRAZOLE 40 MG TAB PO SCH (09:41)
[2022-05-28] MEDS: METOCLOPRAMIDE HCL 10 MG TAB PO SCH (09:42)
[2022-05-28] MEDS: METOPROLOL SUCCINATE XL 50 MG TAB PO SCH (09:42)
[2022-05-28] MEDS ORDERED: FUROSEMIDE 40 MG TAB PO SCH (10:00)
[2022-05-28] MEDS ORDERED: POTASSIUM CHL 20 Meq TABLET PO SCH (10:00)
[2022-05-28] MEDS ORDERED: LIOTHYRONINE SODIUM PO SCH (10:00)
[2022-05-28 13:00] VITALS: BP 136/64
[2022-05-28 16:00] VITALS: BP 122/64
[2022-05-28 17:14] VITALS: BP 128/68
== END 2022-05-28 17:34 | disposition home or self-care (01) | DRG 247 ==
LOC: CATH 08:05 → TELE 16:01 → TELE-WESTW 17:04
PROVIDERS: ADMIT Internal Medicine Cardiovascular Disease; ATTEND Internal Medicine Cardiovascular Disease
PROC: 027035Z Dilation of Coronary Artery, One Artery with Two Drug-eluting Intraluminal Devices, Percutaneous Approach (ICD-10-PCS; principal; 2022-05-27)
PROC: 02C03ZZ Extirpation of Matter from Coronary Artery, One Artery, Percutaneous Approach (ICD-10-PCS; 2022-05-27)
PROC: 4A023N7 Measurement of Cardiac Sampling and Pressure, Left Heart, Percutaneous Approach (ICD-10-PCS; 2022-05-27)
PROC: B211YZZ Fluoroscopy of Multiple Coronary Arteries using Other Contrast (ICD-10-PCS; 2022-05-27)
PROC: B215YZZ Fluoroscopy of Left Heart using Other Contrast (ICD-10-PCS; 2022-05-27)
PROC: 4A033BC Measurement of Arterial Pressure, Coronary, Percutaneous Approach (ICD-10-PCS; 2022-05-27)
DX: I24.9 Acute ischemic heart disease, unspecified (principal); D64.9 Anemia, unspecified; I25.118 Atherosclerotic heart disease of native coronary artery with other forms of angina pectoris; I10 Essential (primary) hypertension; E66.9 Obesity, unspecified; E78.5 Hyperlipidemia, unspecified; G89.29 Other chronic pain; K58.9 Irritable bowel syndrome, unspecified; M06.9 Rheumatoid arthritis, unspecified; Z20.822 Contact with and (suspected) exposure to COVID-19; Z68.33 Body mass index [BMI] 33.0-33.9, adult
CPT/HCPCS: 36415; 80048; 85025; 85610; 85730; 92929; 92933; 93458; 93571; 99152; 99153; C1724; C1769; C1874; G0378; J2001; J2250; Q9967

== ENCOUNTER → 2022-10-11 | Outpatient (CLI) | payer MEDICARE, BC ==
[~2022-10-11] MED LIST changes: -SUCR1SUS16 PO; +SUCR1SUS25 PO
== END | disposition home or self-care (01) ==
LOC: Rad HDHVI 08:05
PROVIDERS: ATTEND Internal Medicine Cardiovascular Disease
DX: I08.1 Rheumatic disorders of both mitral and tricuspid valves (principal); R06.02 Shortness of breath; R07.89 Other chest pain
CPT/HCPCS: 93306

== ENCOUNTER → 2023-02-18 | Outpatient (CLI) | payer MEDICARE, BC ==
[~2023-02-18] VITALS: Ht 30.5 cm; Wt 0.5 kg
[~2023-02-18] MED LIST changes: +MULTIPLE VIT 10 ML IV ONE; +MVI in SODIUM CHLORIDE 0.9% 500 ML IVB ONE
[2023-02-18 10:30] VITALS: BP 133/70; PULSE 96; RESP 16; O2SAT 98
[2023-02-18 13:17] VITALS: BP 113/50; PULSE 98; RESP 16; O2SAT 98
== END | disposition home or self-care (01) ==
LOC: CHF HDHVI 10:27
PROVIDERS: ATTEND Internal Medicine Cardiovascular Disease
DX: E86.0 Dehydration (principal); R53.83 Other fatigue; R06.02 Shortness of breath
CPT/HCPCS: 96365; 96366; G0463; J3411; J3475; J7040; 96360; 96361

== ENCOUNTER → 2023-03-02 | Outpatient (CLI) | payer MEDICARE, BC ==
[~2023-03-02] VITALS: Ht 175.3 cm; Wt 90.3 kg
[~2023-03-02] MED LIST changes: -MULTIPLE VIT 10 ML IV ONE; -MVI in SODIUM CHLORIDE 0.9% 500 ML IVB ONE
== END | disposition home or self-care (01) ==
LOC: Rad HDHVI 12:56
PROVIDERS: ATTEND Internal Medicine Cardiovascular Disease
DX: I11.0 Hypertensive heart disease with heart failure (principal); I50.33 Acute on chronic diastolic (congestive) heart failure; R06.02 Shortness of breath; R00.2 Palpitations; R07.9 Chest pain, unspecified; E78.00 Pure hypercholesterolemia, unspecified; Z82.49 Family history of ischemic heart disease and other diseases of the circulatory system
CPT/HCPCS: 78452; 93017; 96374; A9500

== ENCOUNTER → 2023-03-28 | Outpatient (CLI) | payer MEDICARE, BC ==
[~2023-03-28] MED LIST changes: +ANGIOMAX 250 MG VIAL IV ONE; +ASPI81CH74 PO; +ASPirin 325 MG TAB ONE; +CLOP75TA28 PO; +CLOPIDOGREL 300 MG TAB ONE; +FAMO20TA10 PO; +FUROSEMIDE 20 MG/2 ML VIAL ONE; +IOHEXOL 350 MG/ML 100ML IJ ONE; +LIDOCAINE 2%HCL (LOCAL ANESTH.) INJ 20ML MDV ONE; +MIDAZOLAM HCL 2MG/2ML 2ml VIAL (1mg/ml) ONE; +SODIUM CHL 0.9% 50 ML ONE; +fentaNYL CITRATE 100 MCG/2 ML VL ONE
[2023-03-28 11:10] VITALS: BP 119/61; PULSE 97; RESP 18; O2SAT 100
[2023-03-28 11:36] VITALS: BP 110/60; PULSE 92; RESP 18; O2SAT 100
== END | disposition home or self-care (01) ==
LOC: CHF HDHVI 11:04
PROVIDERS: ATTEND Internal Medicine Cardiovascular Disease
DX: Z01.818 Encounter for other preprocedural examination (principal); I44.7 Left bundle-branch block, unspecified; R94.31 Abnormal electrocardiogram [ECG] [EKG]; I25.10 Atherosclerotic heart disease of native coronary artery without angina pectoris
CPT/HCPCS: 93005; G0463

== ENCOUNTER 2023-03-29 10:58 | Day surgery (SDC) | payer MEDICARE, BC ==
[2023-03-28 12:53] LABS: Basophils # (auto) 0 10 ^3/uL (0-0.2); Basophils % (auto) 0.3 % (0.0-2.0); Eosinophils # (auto) 0 10 ^3/uL (0-0.8); Eosinophils % (auto) 0.7 % (0.0-7.0); Hematocrit 36.6 % (36.0-46.0); Hemoglobin 11.6 g/dL (12.2-16.2); Lymphocytes # (auto) 2.1 10 ^3/uL (0.4-5.4); Lymphocytes % (auto) 34.7 % (10.0-50.0); Mean Corpuscular Hemoglobin 27.3 pg (28.0-32.0); Mean Corpuscular Hgb Conc. 31.8 g/dL (32.0-36.0); Mean Corpuscular Volume 85.9 fL (80.0-100.0); Monocytes # (auto) 0.3 10 ^3/uL (0-1.3); Monocytes % (auto) 4.9 % (0.0-12.0); Neutrophils # (auto) 3.5 10 ^3/uL (1.6-8.6); Neutrophils % (auto) 59.4 % (37.0-80.0); Nucleated Red Blood Cells % 0.4 %; Red Blood Cells 4.26 10^6/uL (4.0-5.20); Red Cell Distribution Width 14.6 % (11.8-14.3)
[2023-03-28 13:07] LABS: INR 1.09 (0.9-1.15); Partial Thromboplastin Time 28.2 SEC (24.5-34.5); Prothrombin Time 11.4 sec (9.3-11.8)
[2023-03-28 13:31] LABS: Chloride 106 mmol/L (98-107); Potassium 3.7 mmol/L (3.5-5.1); Sodium 140 mmol/L (136-145)
[2023-03-28 13:32] LABS: Anion Gap 8 (5-15); Carbon Dioxide 26 mmol/L (20-30)
[2023-03-28 13:33] LABS: Calcium 9.9 mg/dL (8.5-10.1)
[2023-03-28 13:37] LABS: Glucose 94 mg/dL (74-106)
[2023-03-28 13:38] LABS: BUN/Creatinine Ratio 15.7 (10.0-20.0); Blood Urea Nitrogen 8 mg/dL (9-23)
[~2023-03-29] VITALS: Ht 172.7 cm; Wt 87.1 kg
[~2023-03-29 10:58] MED LIST changes: -ANGIOMAX 250 MG VIAL IV ONE; -ASPirin 325 MG TAB ONE; -CHOLPOW45 XX; -CLOP75TA28 PO; -CLOPIDOGREL 300 MG TAB ONE; -FURO1TAB31 PO; -FUROSEMIDE 20 MG/2 ML VIAL ONE; -IOHEXOL 350 MG/ML 100ML IJ ONE; -LIDOCAINE 2%HCL (LOCAL ANESTH.) INJ 20ML MDV ONE; -LORA-655 PO; -METO-281 PO; -MIDAZOLAM HCL 2MG/2ML 2ml VIAL (1mg/ml) ONE; -POM; -POTA-180 PO; -SODIUM CHL 0.9% 50 ML ONE; -SUCR1SUS25 PO; -VITACAP46 OR; -fentaNYL CITRATE 100 MCG/2 ML VL ONE
[2023-03-29] MEDS ORDERED: CLOP75TA28 PO (14:48)
[2023-04-26] MEDS ORDERED: TRAM50TA2 PO (12:23)
[2023-04-26] MEDS ORDERED: POTA10TA51 PO (12:23)
[2023-04-26] MEDS ORDERED: FURO1TAB33 PO (12:23)
== END 2023-03-29 16:20 | disposition home or self-care (01) ==
LOC: CATH 10:58
PROVIDERS: ATTEND Internal Medicine Cardiovascular Disease
DX: R07.9 Chest pain, unspecified (principal); I25.10 Atherosclerotic heart disease of native coronary artery without angina pectoris; F41.8 Other specified anxiety disorders; I10 Essential (primary) hypertension; E78.5 Hyperlipidemia, unspecified; M06.9 Rheumatoid arthritis, unspecified; G47.33 Obstructive sleep apnea (adult) (pediatric); J44.9 Chronic obstructive pulmonary disease, unspecified; E66.9 Obesity, unspecified; Z68.29 Body mass index [BMI] 29.0-29.9, adult; Z82.49 Family history of ischemic heart disease and other diseases of the circulatory system; Z82.61 Family history of arthritis; Z82.5 Family history of asthma and other chronic lower respiratory diseases; Z88.2 Allergy status to sulfonamides; Z79.82 Long term (current) use of aspirin; Z79.899 Other long term (current) drug therapy
CPT/HCPCS: 36415; 80048; 85025; 85610; 85730; 93458; 93571; C1769; C1874; C1887; C1894; C9600; J0583; J1644; J1940; J2250; J3010; Q9967; 99152

== ENCOUNTER → 2023-04-12 | Outpatient (CLI) | payer MEDICARE, BC ==
[~2023-04-12] MED LIST changes: +CLOP75TA28 PO; +FURO1TAB33 PO; +POTA10TA51 PO; +TRAM50TA2 PO
== END | disposition home or self-care (01) ==
LOC: Rad HDHVI 08:54
PROVIDERS: ATTEND Internal Medicine Cardiovascular Disease
DX: I08.3 Combined rheumatic disorders of mitral, aortic and tricuspid valves (principal); I11.9 Hypertensive heart disease without heart failure; R06.02 Shortness of breath
CPT/HCPCS: 93306

== ENCOUNTER → 2023-04-27 | Day surgery (SDC) | payer MEDICARE, BC ==
[2023-04-26 12:42] LABS: Basophils # (auto) 0 10 ^3/uL (0-0.2); Basophils % (auto) 0.5 % (0.0-2.0); Eosinophils # (auto) 0.1 10 ^3/uL (0-0.8); Eosinophils % (auto) 1.2 % (0.0-7.0); Hematocrit 36.7 % (36.0-46.0); Hemoglobin 11.8 g/dL (12.2-16.2); Lymphocytes # (auto) 2.5 10 ^3/uL (0.4-5.4); Mean Corpuscular Hemoglobin 27.5 pg (28.0-32.0); Mean Corpuscular Hgb Conc. 32.1 g/dL (32.0-36.0); Mean Corpuscular Volume 85.8 fL (80.0-100.0); Monocytes # (auto) 0.3 10 ^3/uL (0-1.3); Monocytes % (auto) 4.3 % (0.0-12.0); Neutrophils # (auto) 3.2 10 ^3/uL (1.6-8.6); Red Blood Cells 4.28 10^6/uL (4.0-5.20); Red Cell Distribution Width 14.7 % (11.8-14.3); White Blood Cell 6.1 10^3/uL (4.4-10.8)
[2023-04-26 12:57] LABS: INR 1.09 (0.9-1.15); Partial Thromboplastin Time 28.2 SEC (24.5-34.5); Prothrombin Time 11.4 sec (9.3-11.8)
[2023-04-26 13:09] LABS: Urine Bacteria NONE SEEN /hpf (None Seen); Urine Blood Negative /uL (Negative); Urine Clarity Clear (Clear); Urine Color Yellow (Yellow); Urine Hyaline Cast FEW /lpf (0 - 2); Urine Mucus FEW (None Seen); Urine Protein, UAD TRACE (Negative); Urine Specific Gravity 1.022 (1.001-1.035); Urine Urobilinogen Normal (Negative); Urine WBC 1 /hpf (0 - 5); Urine pH 5.5 (5.0-8.0)
[2023-04-26 13:39] LABS: Alanine Aminotransferase 15 U/L (7-40); Albumin 4.1 g/dL (3.2-4.8); Alkaline Phosphatase 78 U/L (46-116); Anion Gap 2 (5-15); Aspartate Aminotransferase 21 U/L (13-40); BUN/Creatinine Ratio 10.5 (10.0-20.0); Bilirubin, Total 0.7 mg/dL (0.2-1.0); Blood Urea Nitrogen 6 mg/dL (9-23); Carbon Dioxide 29 mmol/L (20-30); Chloride 111 mmol/L (98-107); Glucose 93 mg/dL (74-106); Potassium 4.5 mmol/L (3.5-5.1); Sodium 142 mmol/L (136-145); Total Protein 6.7 g/dL (5.7-8.2)
[~2023-04-27] MED LIST changes: +BUPIVACAINE 0.5% P/F INJ 10 ML VIAL ONE; -PANT40T PO; +ceFAZolin 2 GM/D5W50ml 50 ML IV ONE
== END | disposition home or self-care (01) ==
LOC: SUR 09:02
PROVIDERS: ATTEND Surgery
DX: R10.13 Epigastric pain (principal); K80.20 Calculus of gallbladder without cholecystitis without obstruction; K21.9 Gastro-esophageal reflux disease without esophagitis; Z53.8 Procedure and treatment not carried out for other reasons
CPT/HCPCS: 36415; 80053; 81001; 85025; 85610; 85730; 86850; 86900; 86901; J0690; J3490

== ENCOUNTER → 2023-04-29 | Outpatient (CLI) | payer MEDICARE, BC ==
[~2023-04-29] MED LIST changes: -BUPIVACAINE 0.5% P/F INJ 10 ML VIAL ONE; +DIGOXIN 0.25 MG TAB ONE; +FUROSEMIDE 40 MG/4 ML VIAL ONE; +METOPROLOL SUCCINATE XL 50 MG TAB PO ONE; +POTASSIUM CHL 10 Meq TABLET PO ONE; -ceFAZolin 2 GM/D5W50ml 50 ML IV ONE; +predniSONE 20 MG TAB ONE
[2023-04-29 09:45] VITALS: BP 116/69; PULSE 99; RESP 22; O2SAT 96
[2023-04-29] MEDS: FUROSEMIDE 40 MG/4 ML VIAL IV ONE ×2 (10:00→11:26)
[2023-04-29] MEDS: METOPROLOL SUCCINATE XL 50 MG TAB PO ONE (10:06)
[2023-04-29] MEDS: POTASSIUM CHL 20 Meq TABLET PO ONE (10:06)
[2023-04-29] MEDS: DIGOXIN 0.25 MG TAB PO ONE (10:06)
[2023-04-29] MEDS: predniSONE 20 MG TAB PO ONE (12:19)
[2023-04-29 13:30] VITALS: BP 127/59; PULSE 95; RESP 22; O2SAT 100
== END | disposition home or self-care (01) ==
LOC: CHF HDHVI 09:45
PROVIDERS: ATTEND Internal Medicine Cardiovascular Disease
DX: I11.9 Hypertensive heart disease without heart failure (principal); R00.0 Tachycardia, unspecified; R06.02 Shortness of breath; J44.9 Chronic obstructive pulmonary disease, unspecified; I25.10 Atherosclerotic heart disease of native coronary artery without angina pectoris; M06.9 Rheumatoid arthritis, unspecified; E78.5 Hyperlipidemia, unspecified; Z79.82 Long term (current) use of aspirin; Z79.899 Other long term (current) drug therapy; Z88.2 Allergy status to sulfonamides
CPT/HCPCS: 96374; 96376; G0463; J1940; J7512

== ENCOUNTER → 2023-05-09 | Outpatient (CLI) | payer MEDICARE, BC ==
[~2023-05-09] MED LIST changes: -DIGOXIN 0.25 MG TAB ONE; -FUROSEMIDE 40 MG/4 ML VIAL ONE; -METOPROLOL SUCCINATE XL 50 MG TAB PO ONE; -POTASSIUM CHL 10 Meq TABLET PO ONE; -predniSONE 20 MG TAB ONE
[2023-05-09 10:00] VITALS: BP 120/72; PULSE 95; RESP 18; O2SAT 97
[2023-05-09 10:15] VITALS: BP 105/57; PULSE 92; RESP 18; O2SAT 97
== END | disposition home or self-care (01) ==
LOC: Rad HDHVI 09:54
PROVIDERS: ATTEND Internal Medicine Cardiovascular Disease
DX: Z01.818 Encounter for other preprocedural examination (principal); I44.7 Left bundle-branch block, unspecified; R94.31 Abnormal electrocardiogram [ECG] [EKG]; I49.1 Atrial premature depolarization; I11.0 Hypertensive heart disease with heart failure; I50.33 Acute on chronic diastolic (congestive) heart failure; R06.02 Shortness of breath; R00.2 Palpitations
CPT/HCPCS: 71046; 93005; G0463

== ENCOUNTER 2023-05-10 13:52 | Inpatient (IN) | payer MEDICARE, BC ==
[~2023-05-10] VITALS: Ht 172.7 cm; Wt 87.9 kg
[~2023-05-10 13:52] MED LIST changes: -LIOT50TA4 PO; -ZOLP10TA6 PO
[2023-05-10 14:22] LABS: Basophils # (auto) 0.1 10 ^3/uL (0-0.2); Basophils % (auto) 0.6 % (0.0-2.0); Eosinophils # (auto) 0.1 10 ^3/uL (0-0.8); Eosinophils % (auto) 0.6 % (0.0-7.0); Hematocrit 47.1 % (36.0-46.0); Lymphocytes % (auto) 45.5 % (10.0-50.0); Mean Corpuscular Hemoglobin 27.4 pg (28.0-32.0); Mean Corpuscular Hgb Conc. 31.8 g/dL (32.0-36.0); Mean Corpuscular Volume 86.2 fL (80.0-100.0); Monocytes # (auto) 0.3 10 ^3/uL (0-1.3); Monocytes % (auto) 2.9 % (0.0-12.0); Neutrophils # (auto) 5.6 10 ^3/uL (1.6-8.6); Neutrophils % (auto) 50.4 % (37.0-80.0); Nucleated Red Blood Cells % 0.4 %; Red Blood Cells 5.47 10^6/uL (4.0-5.20); Red Cell Distribution Width 14.7 % (11.8-14.3); White Blood Cell 11.1 10^3/uL (4.4-10.8)
[2023-05-10 14:42] LABS: Alanine Aminotransferase 20 U/L (7-40); Albumin 4.3 g/dL (3.2-4.8); Alkaline Phosphatase 96 U/L (46-116); Anion Gap 9 (5-15); Aspartate Aminotransferase 24 U/L (13-40); Blood Urea Nitrogen 16 mg/dL (9-23); Calcium 9.8 mg/dL (8.7-10.4); Carbon Dioxide 25 mmol/L (20-30); Chloride 104 mmol/L (98-107); Glucose 135 mg/dL (74-106); Potassium 4.9 mmol/L (3.5-5.1); Sodium 138 mmol/L (136-145)
[2023-05-10 14:43] LABS: Bilirubin, Total 0.8 mg/dL (0.2-1.0); Total Protein 7.3 g/dL (5.7-8.2)
[2023-05-10] MEDS ORDERED: NITROGLYCERIN 0.4 MG SL TAB SL PRN (20:45)
[2023-05-10] MEDS: LORazepam 2MG/ML-1ML VIAL IV ONE (23:45)
[2023-05-10] MEDS: METOPROLOL TARTRATE 25 MG TAB PO SCH (23:46)
[2023-05-10] MEDS: FAMOTIDINE (10MG/ML) 2ML VL IV ONE (23:53)
[2023-05-10] MEDS: ONDANSETRON HCL 4 MG/2 ML VIAL IV ONE (23:53)
[2023-05-11 01:30] VITALS: PULSE 91; RESP 15; O2SAT 96
[2023-05-11 02:47] LABS: Urine Bacteria FEW /hpf (None Seen); Urine Blood Negative /uL (Negative); Urine Clarity HAZY (Clear); Urine Color Yellow (Yellow); Urine Hyaline Cast FEW /lpf (0 - 2); Urine Mucus FEW (None Seen); Urine Protein, UAD 1+ (Negative); Urine Specific Gravity 1.028 (1.001-1.035); Urine Urobilinogen Normal (Negative); Urine WBC 3 /hpf (0 - 5); Urine pH 5.5 (5.0-8.0)
[2023-05-11 05:21] LABS: Basophils # (auto) 0.1 10 ^3/uL (0-0.2); Basophils % (auto) 0.5 % (0.0-2.0); Eosinophils # (auto) 0.1 10 ^3/uL (0-0.8); Eosinophils % (auto) 0.7 % (0.0-7.0); Hematocrit 42.7 % (36.0-46.0); Hemoglobin 13.9 g/dL (12.2-16.2); Mean Corpuscular Hgb Conc. 32.7 g/dL (32.0-36.0); Mean Corpuscular Volume 85.8 fL (80.0-100.0); Monocytes # (auto) 0.6 10 ^3/uL (0-1.3); Neutrophils # (auto) 5.8 10 ^3/uL (1.6-8.6); Neutrophils % (auto) 54.8 % (37.0-80.0); Nucleated Red Blood Cells % 0.1 %; Red Blood Cells 4.97 10^6/uL (4.0-5.20); White Blood Cell 10.6 10^3/uL (4.4-10.8)
[2023-05-11] MEDS: LEVOTHYROXINE SODIUM 50 MCG TAB PO SCH (07:26)
[2023-05-11 07:43] VITALS: PULSE 82; RESP 16; O2SAT 99
[2023-05-11] MEDS: ASPirin 81 mg TAB PO SCH (10:00)
[2023-05-11] MEDS: CLOPIDOGREL BISULFATE 75 MG TAB PO SCH (10:00)
[2023-05-11] MEDS: DIGOXIN 0.125 MG TAB PO SCH (10:23)
[2023-05-11] MEDS: FUROSEMIDE 40 MG TAB PO SCH (10:23)
[2023-05-11] MEDS: AZITHROMYCIN 500MG/ 250ML 250 ML IV ONE (13:26)
[2023-05-11] MEDS: DOBUTamine 1000MCG/ML 250 ML IV SCH (14:30)
[2023-05-11 20:12] VITALS: PULSE 107; RESP 16; O2SAT 98
[2023-05-12] VITALS (12 sets, daily range): BP systolic 95–134; BP diastolic 50–83; PULSE 83–124; RESP 11–20; TEMP 97.3–98.1; O2SAT 96–100
[2023-05-12] MEDS: TEMAZEPAM 15 MG CAP PO ONE (01:12)
[2023-05-12] MEDS: LIDOCAINE 2%HCL (LOCAL ANESTH.) INJ 20ML MDV ONE (10:08)
[2023-05-12] MEDS: IOHEXOL 350 MG/ML 100ML IJ ONE (10:08)
[2023-05-12] MEDS: fentaNYL CITRATE 100 MCG/2 ML VL ONE ×2 (10:12→10:39)
[2023-05-12] MEDS: VANCOMYCIN 1GM/200ML 200 ML IV ONE ×2 (10:13→10:15)
[2023-05-12] MEDS: MIDAZOLAM HCL 2MG/2ML 2ml VIAL (1mg/ml) ONE (10:13)
[2023-05-12] MEDS: VANCOMYCIN HCL 1000 MG VL ONE (10:14)
[2023-05-12] MEDS: DOBUTamine 1000MCG/ML 250 ML IV ONE (10:21)
[2023-05-12] MEDS: FUROSEMIDE 20 MG/2 ML VIAL ONE ×2 (10:40→10:41)
[2023-05-12] MEDS: METOPROLOL TARTRATE 25 MG TAB PO SCH (12:30)
[2023-05-12 14:55] LABS: Chloride 107 mmol/L (98-107); Potassium 3.8 mmol/L (3.5-5.1); Sodium 139 mmol/L (136-145)
[2023-05-12 14:56] LABS: Anion Gap 8 (5-15); Carbon Dioxide 24 mmol/L (20-30)
[2023-05-12 14:57] LABS: Calcium 8.8 mg/dL (8.7-10.4)
[2023-05-12 15:02] LABS: Glucose 95 mg/dL (74-106)
[2023-05-12 15:05] LABS: BUN/Creatinine Ratio 8.8 (10.0-20.0); Blood Urea Nitrogen < 5 mg/dL (9-23)
[2023-05-12] MEDS: ONDANSETRON HCL 4 MG/2 ML VIAL IV PRN (15:27)
[2023-05-12] MEDS: ceFAZolin 1GM/50ML 50 ML IV SCH (15:29)
[2023-05-12] MEDS: AZITHROMYCIN 500MG/ 250ML 250 ML IV SCH (15:29)
[2023-05-12] MEDS: VANCOMYCIN 1GM/200ML 200 ML IV SCH (22:15)
[2023-05-12] MEDS: MORPHINE SULFATE INJ 2 MG/ml SYRG IV PRN (23:52)
[2023-05-13] VITALS (7 sets, daily range): BP systolic 94–126; BP diastolic 54–62; PULSE 90–118; RESP 15–18; TEMP 97.4–98; O2SAT 94–100
[2023-05-14] VITALS (7 sets, daily range): BP systolic 93–107; BP diastolic 42–60; PULSE 0–111; RESP 16–20; TEMP 98.3–98.9; O2SAT 94–100
[2023-05-15] VITALS (8 sets, daily range): BP systolic 101–147; BP diastolic 54–71; PULSE 88–104; RESP 17–20; TEMP 97.8–98.5; O2SAT 97–100
[2023-05-16 05:00] VITALS: BP 94/55; PULSE 88; RESP 18; TEMP 98.6; O2SAT 99
[2023-05-16 08:00] VITALS: PULSE 90; RESP 20; O2SAT 100
[2023-05-16 10:56] VITALS: BP 99/56; PULSE 93; RESP 98; TEMP 98.3; O2SAT 98
[2023-05-16 14:46] LABS: Basophils # (auto) 0 10 ^3/uL (0-0.2); Basophils % (auto) 0.4 % (0.0-2.0); Eosinophils # (auto) 0.2 10 ^3/uL (0-0.8); Eosinophils % (auto) 1.9 % (0.0-7.0); Hematocrit 34.8 % (36.0-46.0); Hemoglobin 11.2 g/dL (12.2-16.2); Lymphocytes % (auto) 28.4 % (10.0-50.0); Mean Corpuscular Hemoglobin 27.8 pg (28.0-32.0); Mean Corpuscular Hgb Conc. 32.1 g/dL (32.0-36.0); Mean Corpuscular Volume 86.4 fL (80.0-100.0); Monocytes # (auto) 0.7 10 ^3/uL (0-1.3); Monocytes % (auto) 6.5 % (0.0-12.0); Neutrophils # (auto) 6.7 10 ^3/uL (1.6-8.6); Neutrophils % (auto) 62.8 % (37.0-80.0); Nucleated Red Blood Cells % 0.2 %; Red Blood Cells 4.03 10^6/uL (4.0-5.20); Red Cell Distribution Width 15.2 % (11.8-14.3); White Blood Cell 10.6 10^3/uL (4.4-10.8)
[2023-05-16 15:03] LABS: Chloride 107 mmol/L (98-107); Potassium 4.2 mmol/L (3.5-5.1); Sodium 139 mmol/L (136-145)
[2023-05-16 15:04] LABS: Anion Gap 3 (5-15); Calcium 8.9 mg/dL (8.5-10.1); Carbon Dioxide 29 mmol/L (20-30)
[2023-05-16 15:09] LABS: Blood Urea Nitrogen 8 mg/dL (9-23); Glucose 84 mg/dL (74-106)
[2023-05-16] MEDS: IVABRADINE 5 MG TAB PO SCH (15:40)
[2023-05-16 17:01] VITALS: BP 117/66; PULSE 98; RESP 20; TEMP 98.2; O2SAT 99
[2023-05-16] MEDS ORDERED: [UNRECOGNIZED DRUG - OTHER] PO SCH (22:00)
== END 2023-05-16 19:00 | disposition home or self-care (01) | DRG 276 ==
LOC: ER 13:52 → TELE 20:37 → TELE-WESTW 05-12 02:28
PROVIDERS: ADMIT Nurse Practitioner; ATTEND Internal Medicine Cardiovascular Disease
PROC: 0JH609Z Insertion of Cardiac Resynchronization Defibrillator Pulse Generator into Chest Subcutaneous Tissue and Fascia, Open Approach (ICD-10-PCS; principal; 2023-05-12)
PROC: 02HK3KZ Insertion of Defibrillator Lead into Right Ventricle, Percutaneous Approach (ICD-10-PCS; 2023-05-12)
PROC: 02HL3KZ Insertion of Defibrillator Lead into Left Ventricle, Percutaneous Approach (ICD-10-PCS; 2023-05-12)
PROC: 02H63KZ Insertion of Defibrillator Lead into Right Atrium, Percutaneous Approach (ICD-10-PCS; 2023-05-12)
DX: I11.0 Hypertensive heart disease with heart failure (principal); I50.23 Acute on chronic systolic (congestive) heart failure; K58.9 Irritable bowel syndrome, unspecified; E78.5 Hyperlipidemia, unspecified; M06.9 Rheumatoid arthritis, unspecified; I45.10 Unspecified right bundle-branch block; I48.91 Unspecified atrial fibrillation; F41.9 Anxiety disorder, unspecified; I25.10 Atherosclerotic heart disease of native coronary artery without angina pectoris; Z98.61 Coronary angioplasty status; Z79.891 Long term (current) use of opiate analgesic; Z79.890 Hormone replacement therapy; Z79.899 Other long term (current) drug therapy; Z88.2 Allergy status to sulfonamides
CPT/HCPCS: 33225; 33249; 36415; 71045; 71046; 74176; 80048; 80053; 80162; 81001; 82962; 83690; 83735; 83880; 84484; 85025; 93005; 97110; 97116; 97163; 97530; 99152; G0378; G0463; J2250; J2405; J3490

== ENCOUNTER → 2023-08-15 | Outpatient (CLI) | payer MEDICARE, BC ==
[~2023-08-15] MED LIST changes: -FAMO20TA10 PO; +POTA-36 PO; -POTA10TA51 PO; -TRAM50TA2 PO
== END | disposition home or self-care (01) ==
LOC: Rad HDHVI 16:15
PROVIDERS: ATTEND Internal Medicine Cardiovascular Disease
DX: I73.9 Peripheral vascular disease, unspecified (principal); I87.8 Other specified disorders of veins; Z96.653 Presence of artificial knee joint, bilateral; M25.562 Pain in left knee; M25.561 Pain in right knee
CPT/HCPCS: 73562

== ENCOUNTER → 2023-08-18 | Outpatient (CLI) | payer MEDICARE, BC ==
[~2023-08-18] VITALS: Ht 174.6 cm; Wt 83.9 kg
== END | disposition home or self-care (01) ==
LOC: Rad HDHVI 10:08
PROVIDERS: ATTEND Internal Medicine Cardiovascular Disease
DX: I11.0 Hypertensive heart disease with heart failure (principal); I50.33 Acute on chronic diastolic (congestive) heart failure; I34.0 Nonrheumatic mitral (valve) insufficiency; I48.0 Paroxysmal atrial fibrillation; I73.9 Peripheral vascular disease, unspecified; Z95.0 Presence of cardiac pacemaker
CPT/HCPCS: 78472; 96374; 96375; A9505

== ENCOUNTER → 2023-08-31 | Outpatient (CLI) | payer MEDICARE, BC | END | disposition home or self-care (01) | LOC: Rad HDHVI 11:04 | PROVIDERS: ATTEND Internal Medicine Cardiovascular Disease | DX: M25.461 Effusion, right knee (principal); Z96.652 Presence of left artificial knee joint; Z79.899 Other long term (current) drug therapy | CPT/HCPCS: 73700 ==

== ENCOUNTER → 2023-12-27 | Outpatient (CLI) | payer MEDICARE, BC ==
[~2023-12-27] MED LIST changes: +ALPR0.25 PO; +DIGO0.12 PO; +ESOM40CA39 PO; +IVAB1.7T PO; +LEVO125T7 PO; +LIDOCAINE 2%HCL (LOCAL ANESTH.) INJ 20ML MDV ONE; +MIDAZOLAM HCL 2MG/2ML 2ml VIAL (1mg/ml) ONE; +ZOLP10TA PO; +fentaNYL CITRATE 100 MCG/2 ML VL ONE
[2023-12-27 13:15] VITALS: BP 190/77; PULSE 58; RESP 18; O2SAT 98
[2023-12-27 13:23] VITALS: BP 174/76; PULSE 60; RESP 18; O2SAT 98
== END | disposition home or self-care (01) ==
LOC: Rad HDHVI 12:49
PROVIDERS: ATTEND Internal Medicine Cardiovascular Disease
DX: Z01.818 Encounter for other preprocedural examination (principal); I10 Essential (primary) hypertension; I25.2 Old myocardial infarction; I25.5 Ischemic cardiomyopathy; Z95.5 Presence of coronary angioplasty implant and graft; Z95.810 Presence of automatic (implantable) cardiac defibrillator
CPT/HCPCS: 71046; 93005; G0463

== ENCOUNTER 2023-12-29 07:28 | Day surgery (SDC) | payer MEDICARE, BC ==
[2023-12-27 15:42] LABS: Basophils # (auto) 0 10 ^3/uL (0-0.2); Basophils % (auto) 0.2 % (0.0-2.0); Eosinophils # (auto) 0.1 10 ^3/uL (0-0.8); Eosinophils % (auto) 0.8 % (0.0-7.0); Hematocrit 38.3 % (36.0-46.0); Hemoglobin 12.6 g/dL (12.2-16.2); Lymphocytes # (auto) 2.1 10 ^3/uL (0.4-5.4); Lymphocytes % (auto) 27.4 % (10.0-50.0); Mean Corpuscular Hemoglobin 30.1 pg (28.0-32.0); Mean Corpuscular Hgb Conc. 32.9 g/dL (32.0-36.0); Mean Corpuscular Volume 91.5 fL (80.0-100.0); Monocytes # (auto) 0.4 10 ^3/uL (0-1.3); Monocytes % (auto) 5.4 % (0.0-12.0); Neutrophils # (auto) 5.1 10 ^3/uL (1.6-8.6); Neutrophils % (auto) 66.2 % (37.0-80.0); Nucleated Red Blood Cells % 0.1 %; Platelet Count (auto) 240 10^3/uL (140-450); Red Blood Cells 4.18 10^6/uL (4.0-5.20); Red Cell Distribution Width 14.6 % (11.8-14.3); White Blood Cell 7.7 10^3/uL (4.4-10.8)
[2023-12-27 16:06] LABS: INR 1.06 (0.9-1.15); Partial Thromboplastin Time 27.7 SEC (24.5-34.5); Prothrombin Time 11.2 sec (9.3-11.8)
[2023-12-27 16:13] LABS: Chloride 108 mmol/L (98-107); Potassium 4.1 mmol/L (3.5-5.1); Sodium 142 mmol/L (136-145)
[2023-12-27 16:14] LABS: Anion Gap 4 (5-15); Carbon Dioxide 30 mmol/L (20-31)
[2023-12-27 16:15] LABS: Calcium 9.9 mg/dL (8.7-10.4)
[2023-12-27 16:19] LABS: Glucose 93 mg/dL (74-106)
[2023-12-27 16:20] LABS: BUN/Creatinine Ratio 16.9 (10.0-20.0); Blood Urea Nitrogen 11 mg/dL (9-23)
[~2023-12-29] VITALS: Ht 167.6 cm; Wt 88.9 kg
[2023-12-29] VITALS (9 sets, daily range): BP systolic 138–156; BP diastolic 61–74; PULSE 60–63; RESP 11–16; TEMP 98.1; O2SAT 99–100
[~2023-12-29 07:28] MED LIST changes: -LIDOCAINE 2%HCL (LOCAL ANESTH.) INJ 20ML MDV ONE; -MIDAZOLAM HCL 2MG/2ML 2ml VIAL (1mg/ml) ONE; -fentaNYL CITRATE 100 MCG/2 ML VL ONE
[2023-12-29] MEDS: LORazepam 2MG/ML-1ML VIAL IV ONE (08:59)
[2023-12-29] MEDS ORDERED: IODIXANOL 320MG/ML 100ML BTL IV ONE (10:13)
== END 2023-12-29 12:46 | disposition home or self-care (01) ==
LOC: CATH 07:28
PROVIDERS: ATTEND Internal Medicine Cardiovascular Disease
DX: R06.02 Shortness of breath (principal); I10 Essential (primary) hypertension; F41.9 Anxiety disorder, unspecified; F32.A Depression, unspecified; Z82.49 Family history of ischemic heart disease and other diseases of the circulatory system; Z79.82 Long term (current) use of aspirin; Z79.01 Long term (current) use of anticoagulants; Z79.899 Other long term (current) drug therapy
CPT/HCPCS: 36415; 80048; 85025; 85610; 85730; 93458; C1760; C1894; J1644; J2060; Q9967; 99152; J2250

== ENCOUNTER → 2024-03-26 | Outpatient (CLI) | payer MEDICARE, BC ==
--- NOTE | 2024-03-26 13:00 | DVH ---
INDICATION: BILAT WRIST PAIN TECHNIQUE: 4 radiographic views of the bilateral wrist were obtained. COMPARISON: None FINDINGS: There is no evidence of acute fracture or dislocation.The visualized joint space is well ma intained.The alignment is anatomical.The surrounding soft tissues are unremarkable.There is no bony l esions or erosions identified. IMPRESSION: No acute fracture.
== END | disposition home or self-care (01) ==
LOC: Rad HDHVI 12:17
PROVIDERS: ATTEND Internal Medicine Cardiovascular Disease
DX: M25.532 Pain in left wrist (principal); M25.531 Pain in right wrist
CPT/HCPCS: 73110

== ENCOUNTER → 2024-07-31 | Outpatient (CLI) | payer MEDICARE, BC ==
[2024-07-31 11:16] VITALS: BP 140/68; PULSE 62; RESP 16; O2SAT 98
[2024-07-31] MEDS: MULTIPLE VIT 10 ML IV ONE (11:43)
[2024-07-31] MEDS: MVI in SODIUM CHLORIDE 0.9% 500 ML IVB ONE (11:46)
[2024-07-31 12:05] VITALS: BP 150/69; PULSE 56; RESP 16; O2SAT 98
== END | disposition home or self-care (01) ==
LOC: CHF HDHVI 11:07
PROVIDERS: ATTEND Internal Medicine Cardiovascular Disease
DX: E86.0 Dehydration (principal); D64.9 Anemia, unspecified; I11.0 Hypertensive heart disease with heart failure; I50.33 Acute on chronic diastolic (congestive) heart failure; E11.51 Type 2 diabetes mellitus with diabetic peripheral angiopathy without gangrene; F41.9 Anxiety disorder, unspecified; F32.A Depression, unspecified; I25.10 Atherosclerotic heart disease of native coronary artery without angina pectoris; I25.5 Ischemic cardiomyopathy; I25.2 Old myocardial infarction; I48.0 Paroxysmal atrial fibrillation; E78.5 Hyperlipidemia, unspecified; K21.9 Gastro-esophageal reflux disease without esophagitis; J44.9 Chronic obstructive pulmonary disease, unspecified; M06.9 Rheumatoid arthritis, unspecified; Z95.0 Presence of cardiac pacemaker; Z96.653 Presence of artificial knee joint, bilateral; Z88.2 Allergy status to sulfonamides; Z79.82 Long term (current) use of aspirin; Z95.5 Presence of coronary angioplasty implant and graft; Z79.01 Long term (current) use of anticoagulants
CPT/HCPCS: 96365; 96366; G0463; J3411; J3475; J7040; 96360; 96361

== ENCOUNTER → 2024-08-02 | Outpatient (CLI) | payer MEDICARE, BC | END | disposition home or self-care (01) | LOC: Rad HDHVI 11:03 | PROVIDERS: ATTEND Internal Medicine Cardiovascular Disease | DX: I34.0 Nonrheumatic mitral (valve) insufficiency (principal); I51.7 Cardiomegaly; I42.1 Obstructive hypertrophic cardiomyopathy | CPT/HCPCS: 93306 ==

== ENCOUNTER 2024-08-08 08:29 | Outpatient (CLI) | payer MEDICARE, BC ==
[~2024-08-08] VITALS: Ht 172.7 cm; Wt 95.3 kg
[2024-08-08] MEDS ORDERED: ADENOSINE 90 MG/30 ML INJ IV ONE ×2 (09:02→10:04)
[2024-08-08] MEDS ORDERED: ADENOSINE 80 MG in GIVE UN-DILUTED 0 ML IV ONE (16:30)
== END 2024-08-08 17:00 | disposition home or self-care (01) ==
LOC: Rad HDHVI 08:29
PROVIDERS: ATTEND Internal Medicine Cardiovascular Disease
DX: I49.3 Ventricular premature depolarization (principal); R00.1 Bradycardia, unspecified; I25.10 Atherosclerotic heart disease of native coronary artery without angina pectoris; I11.0 Hypertensive heart disease with heart failure; I50.23 Acute on chronic systolic (congestive) heart failure; I25.2 Old myocardial infarction; R06.02 Shortness of breath; E78.00 Pure hypercholesterolemia, unspecified; R07.89 Other chest pain; I42.1 Obstructive hypertrophic cardiomyopathy; I25.5 Ischemic cardiomyopathy; Z95.5 Presence of coronary angioplasty implant and graft; Z79.82 Long term (current) use of aspirin; Z88.2 Allergy status to sulfonamides; Z88.5 Allergy status to narcotic agent; Z95.810 Presence of automatic (implantable) cardiac defibrillator; Z82.49 Family history of ischemic heart disease and other diseases of the circulatory system
CPT/HCPCS: 78452; 93017; A9500; J0153

== ENCOUNTER 2024-11-05 09:10 | Outpatient (CLI) | payer MEDICARE, BC ==
[2024-11-05 09:25] VITALS: BP 152/72; PULSE 59; RESP 18; O2SAT 97
[2024-11-05 09:47] VITALS: BP 161/72; PULSE 55; RESP 18; O2SAT 97
== END 2024-11-05 17:00 | disposition home or self-care (01) ==
LOC: CHF HDHVI 09:10
PROVIDERS: ATTEND Internal Medicine Cardiovascular Disease
DX: Z01.810 Encounter for preprocedural cardiovascular examination (principal); I65.23 Occlusion and stenosis of bilateral carotid arteries; I11.0 Hypertensive heart disease with heart failure; I50.9 Heart failure, unspecified; R79.1 Abnormal coagulation profile
CPT/HCPCS: 93005; G0463

== ENCOUNTER 2024-11-05 11:50 | Outpatient (CLI) | payer MEDICARE, BC ==
[2024-11-05 12:45] LABS: Hematocrit 35.8 % (36.0-46.0); Hemoglobin 11.6 g/dL (12.2-16.2); Mean Corpuscular Hemoglobin 29.1 pg (28.0-32.0); Mean Corpuscular Volume 89.8 fL (80.0-100.0); Nucleated Red Blood Cells % 0.2 %
[2024-11-05 13:04] LABS: INR 1.03 (0.9-1.15); Partial Thromboplastin Time 27.7 SEC (24.5-34.5); Prothrombin Time 10.9 sec (9.3-11.8)
[2024-11-05 14:05] LABS: Anion Gap 7 (5-15); Carbon Dioxide 29 mmol/L (20-31); Potassium 4.5 mmol/L (3.5-5.1); Sodium 144 mmol/L (136-145)
[2024-11-05 14:06] LABS: Calcium 9.5 mg/dL (8.7-10.4)
[2024-11-05 14:09] LABS: Chloride 108 mmol/L (98-107)
[2024-11-05 14:11] LABS: BUN/Creatinine Ratio 15.3 (10.0-20.0); Blood Urea Nitrogen 9 mg/dL (9-23); Glucose 86 mg/dL (74-106)
== END 2024-11-05 17:00 | disposition home or self-care (01) ==
LOC: LAB 11:50
PROVIDERS: ATTEND Internal Medicine Cardiovascular Disease
DX: Z01.812 Encounter for preprocedural laboratory examination (principal); R79.1 Abnormal coagulation profile
CPT/HCPCS: 36415; 80048; 85025; 85610; 85730

== ENCOUNTER 2024-11-08 06:35 | Day surgery (SDC) | payer MEDICARE, BC ==
[2024-11-08] VITALS (8 sets, daily range): BP systolic 130–157; BP diastolic 53–61; PULSE 52–65; RESP 11–16; TEMP 97.8; O2SAT 94–96
[~2024-11-08] VITALS: Ht 172.7 cm; Wt 96.2 kg
[~2024-11-08 06:35] MED LIST changes: -ALPR0.25 PO; -LEVO125T7 PO
[2024-11-08] MEDS ORDERED: IOHEXOL 350 MG/ML 100ML IJ ONE (09:50)
[2024-11-08] MEDS ORDERED: HEPARIN IN NS 1000Units/500mL 1,500 ML ONE (09:51)
[2024-11-08] MEDS ORDERED: MIDAZOLAM HCL 2MG/2ML 2ml VIAL (1mg/ml) ONE (10:26)
[2024-11-08] MEDS ORDERED: fentaNYL CITRATE 100 MCG/2 ML VL ONE (10:26)
[2024-11-08] MEDS ORDERED: LIDOCAINE 2%HCL (LOCAL ANESTH.) INJ 20ML MDV ONE (10:27)
[2024-11-08] MEDS ORDERED: ATROPINE SULF 1 MG/10ml SYR ONE (10:37)
[2024-11-08] MEDS ORDERED: PHENYLEPHRINE HCL 10 MG/ML VL ONE (10:38)
[2024-11-08] MEDS ORDERED: GLYCOPYRROLATE 0.2 MG/ML 1ML VIAL ONE (10:42)
--- NOTE | 2024-11-08 11:43 | DVHOP ---
DATE OF SURGERY: 11/08/2024 PROCEDURES PERFORMED: * Selective left and right carotid angiography. * Selective left and right cerebral angiography. * Conscious sedation. * Right iliac angiography. DESCRIPTION OF PROCEDURE: The patient was prepped and draped under sterile condition. A 1% Xylocaine was used to anesthetize the right groin. Using Cook needle, right femoral artery was engaged with Seldinger technique. A 6-Prydeinig sheath was placed in the right femoral artery. Then, a 6-Prydeinig JL4 diagnostic catheter, selective left and right carotid and cerebral angiography was performed. Using 6-Prydeinig pigtail catheter, ventriculogram was done. There was no complication. The patient tolerated the procedure well. Right femoral arteriotomy site was then closed using the Angio-Seal. RESULTS: * Left and right common carotid without any flow restrictive lesion. * Right subclavian angiography failed to demonstrate any flow restrictive lesion. * Left and right external and internal carotid artery without any flow restrictive lesion. * Left and right cerebral anterior circulation was also intact. CONCLUSION: Thus, the patient's angiography shows no flow restrictive lesion. No plaquing was noted. However, the patient has tortuous anatomy. At this time, no further workup is required. No catheter-based or surgical intervention is warranted. We will continue to follow the patient. Alfredito Peralta MD SA/RANDELL TID: [id number] RECEIPT: [id number]
--- NOTE | 2024-11-08 12:13 | DVHDS ---
DATE OF DISCHARGE: 11/08/2024 DISCHARGE DIAGNOSIS: The patient with TIA symptoms but carotid angiography failed to demonstrate any flow-restrictive lesion. The patient is clinically stable at this time. The patient may be discharged home. Follow up with me in 1 week. Stable at the time of discharge. Continue home medication including aspirin, Plavix, Lasix as well as metoprolol. DISPOSITION: Home. ACTIVITY: As instructed. DIET: 2 g sodium diet. Alfredito Peralta MD SA/BREA TID: [id number] RECEIPT: [id number]
--- NOTE | 2024-11-08 18:14 | DVHHP ---
ADMIT DATE: 11/08/2024 HISTORY OF PRESENT ILLNESS: The patient is 74 years old with a history of hypertension, history of abdominal discomfort, history of chest pain, TIA-like symptoms. She denies any tobacco history. She had previous coronary angiography and it was negative. Also, the patient had permanent pacemaker implantation with sick sinus syndrome. PAST MEDICAL HISTORY AND MEDICATIONS: Pertinent medical history is significant for aspirin, Plavix, digoxin, Lasix, and metoprolol for palpitations. She has no history of dialysis. No history of renal failure. No history of diabetes. SOCIAL HISTORY: No history of tobacco, alcohol, or any drug use. PHYSICAL EXAMINATION: VITAL SIGNS: Blood pressure is 132/80, pulse of 70, O2 saturation 98% on room air. HEENT: Pupils are reactive. Funduscopic exam benign. Sclerae anicteric. Extraocular muscles are intact. Tympanic membranes are negative. Oral mucosa moist. Posterior pharynx without any exudate. NECK: No JVD appreciated. Carotid pulses are 2+ symmetrical with normal upstroke and contour. No cervical adenopathy. No supraclavicular adenopathy. PULMONARY: Scatterd rhonchi at the bases, otherwise unremarkable. No wheezing. No egophony. CARDIOVASCULAR: Regular rate. There is a 2/6 systolic murmur. ABDOMEN: Soft, nontender. Normal bowel sounds. Obese. EXTREMITIES: 2+ pulses bilaterally. NEUROLOGIC: The patient is intact. ASSESSMENT AND PLAN: Thus, the patient with osteoarthritis, hypertension, hyperlipidemia, now with TIA-like symptoms. No seizure activity. The patient's carotid Doppler showed possible 70% narrowing of the left internal carotid artery or tortuous carotid. The patient is now to undergo carotid angiography to define carotid anatomy. Further recommendations after the angiogram. Alfredito Peralta MD SA/BAILEE TID: [id number] RECEIPT: [id number]
== END 2024-11-08 13:40 | disposition home or self-care (01) ==
LOC: CATH 06:35
PROVIDERS: ATTEND Internal Medicine Cardiovascular Disease
DX: I65.22 Occlusion and stenosis of left carotid artery (principal); I49.5 Sick sinus syndrome; I10 Essential (primary) hypertension; E78.5 Hyperlipidemia, unspecified; F41.8 Other specified anxiety disorders; Z79.82 Long term (current) use of aspirin; Z79.890 Hormone replacement therapy; Z79.899 Other long term (current) drug therapy; Z86.73 Personal history of transient ischemic attack (TIA), and cerebral infarction without residual deficits; Z95.0 Presence of cardiac pacemaker; Z95.5 Presence of coronary angioplasty implant and graft; Z88.1 Allergy status to other antibiotic agents; Z88.2 Allergy status to sulfonamides; Z82.61 Family history of arthritis; Z82.5 Family history of asthma and other chronic lower respiratory diseases; Z82.49 Family history of ischemic heart disease and other diseases of the circulatory system
CPT/HCPCS: 36222; 36225; 36227; C1760; C1769; C1894; J1644; J2250; J3010; J7030; Q9967; 99152